=== PATIENT | male | born 2000 | race Asian ===

== ENCOUNTER 2023-09-02 21:23 | Emergency (ER) | payer OTHER, SELFPAY ==
[2023-09-02 21:24] VITALS: RESP 16; O2SAT 99
[2023-09-02 21:28] VITALS: BP 150/80; PULSE 89; RESP 18; TEMP 36.7; O2SAT 99; BMI 24.4
--- NOTE | 2023-09-02 21:37 | ED_ITS ---
HPI - General Adult General Chief complaint: Nose Injury/Pain Stated complaint: sport accident -nose Time Seen by Provider: 09/02/23 21:29 History of Present Illness HPI narrative: Patient is a 22-year-old gentleman [facility] who was playing basketball tonight and was struck in the nose by an opponent head while the patient was playing excellent defense. He did not have any epistaxis but has some swelling over the bridge of the nose. There is slight deformity but patient is able to breathe through both nostrils. Patient did not lose consciousness. He has no neck pain no fevers no chills no night sweats no change in his vision or hearing and no other neurologic symptoms. The injury occurred immediately prior to coming [place] the [place] pain is only mild. Related Data Home Medications Medication Instructions Recorded Confirmed No Known Home Medications 09/02/23 09/02/23 Allergies Allergy/AdvReac Type Severity Reaction Status Date / Time No Known Drug Allergies Allergy Verified 09/02/23 21:30 Review of Systems Status of ROS: Reports: 10 or more systems reviewed and unremarkable except as noted in History and below [facility] Medical History No significant past medical history Surgical History No significant past surgical history Social History Smoking Status: Never smoker Second hand tobacco smoke exposure: No How often do you have a drink containing alcohol: never How often do you have six or more drinks on one occasion: Never AUDIT-C Alcohol total score: 0 Non-prescribed substance use: denies use Exam Narrative: Exam Narrative: EXAM GENERAL: Patient appears comfortable and well. EYES: No scleral icterus. ENT: Tympanic membranes and oropharynx normal. Nasal exam shows mild swelling over the bridge of the nose with slight deviation for the midline. No epistaxis no other injuries noted no tenderness over the maxillary or mandibular regions. THYROID: no thyroid nodules or thyromegaly. LYMPH: No supraclavicular or cervical lymphadenopathy. SKIN: Visible skin seen during exam normal or with benign process only. EXT: No dependent lower extremity pedal edema. HEART: Regular rate and rhythm with no murmurs, rubs, or gallops. LUNGS: Clear to auscultation bilaterally with no crackles or wheezes. ABD: Soft, non tender, non distended. PSYCH: Good eye contact, speech is not pressured. Const: Vital Signs, click to edit/add: Vital Signs - 24 hr 09/02/23 21:24 09/02/23 21:28 Temperature 98.0 F Pulse Rate [Right Pulse Oximeter] 89 Respiratory Rate 18 Respiratory Rate [ Face] 16 Blood Pressure [Ri ght Upper Arm] 150/80 H Pulse Oximetry 99 Oxygen Delivery Me thod Room Air Course Course ED Course: Patient seen and examined. 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 He has no other injuries and no neurologic symptoms. I did carefully examine his nose and see a slight deviation. I do not think he would benefit from further imaging. I did recommend Tylenol Motrin ice and follow up this coming week potentially with the ear nose and throat referral. All q Differential Diagnosis Differential Diagnosis: Nasal fracture orbit fracture maxillary fracture concussion Discharge Plan Discharge Clinical Impression: Contusion, nose Patient Disposition: Home, Self-Care Condition: Stable Instructions: Contusion in Adults (ED) Additional Instructions: ice Tylenol Motrin follow-up next week to discuss further imaging. Activity Level: No Restrictions Discharge Diet: Regular Prescriptions: No Action No Known Home Medications Stand Alone Forms: [employer]ondo Info Instructions
[2023-09-02 22:15] VITALS: BP 135/74; PULSE 80; RESP 18; TEMP 36.7; O2SAT 99
[2023-09-02 22:30] VITALS: BP 135/74; PULSE 80; RESP 18; TEMP 36.7
== END 2023-09-02 22:30 | disposition home or self-care (01) ==
LOC: ED 21:52
PROVIDERS: Emergency Provider Internal Medicine
DX: S00.33XA Contusion of nose, initial encounter (principal); W21.05XA Struck by basketball, initial encounter; Y93.67 Activity, basketball
CPT/HCPCS: 99282; 99283

== ENCOUNTER 2023-09-09 09:50 | Day surgery (SDC) | payer OTHER, SELFPAY ==
[2023-09-09] VITALS (12 sets, daily range): BP systolic 93–127; BP diastolic 40–98; PULSE 67–84; RESP 16; TEMP 36.6–37.6; O2SAT 96–99; BMI 22.7
[2023-09-09] MEDS: LACTATED RINGERS 1000 ML 1,000 ML 100 ML IV (10:35)
[2023-09-09] MEDS: SODIUM CHLORIDE 0.9 % (FLUSH) 10 ML SYRINGE IVF (10:35)
[2023-09-09] MEDS: OXYMETAZOLINE 0.05% NASAL SPRAY 2 SPRAY NOSTRIL-B (11:03)
--- NOTE | 2023-09-09 11:32 | W.ANESCHARGE ---
Anesthesia Charges Start Date/Time Anesthesia Start Date: 09/09/23 Anesthesia Start Time: 11:34 Stop Date/Time Anesthesia Stop Date: 09/09/23 Anesthesia Stop Time: 12:04
[2023-09-09] MEDS: OXYMETAZOLINE (AFRIN) SOAK 1 EACH TOPICAL (11:45)
--- NOTE | 2023-09-09 11:53 | W.PM.ENTPROC ---
Procedure Note Date of procedure: 09/09/23 Procedure: Preoperative diagnosis depressed right nasal fracture Postoperative diagnosis same Procedure closed reduction nasal fracture Under general endotracheal anesthesia patient was prepped and draped usual fashion the nose decongested with Afrin pledgets. The fracture line was palpated and marked externally with the fracture elevator. This too was inserted into the nose and the fracture was reduced. It appeared to be reasonably stable. There was moderate bleeding so I placed dissolvable packing on the right side only. External dressing consisting of benzoin and Steri tape was applied. The patient procedure well was taken recovery in satisfactory condition blood loss less than 20 mL. Surgeon: Cedrick Diego MD
--- NOTE | 2023-09-09 12:36 | SUR.PHASEI ---
patient met discharge criteria per anesthesia
--- NOTE | 2023-09-09 13:00 | W.ANESCHARGE ---
Anesthesia Charges Start Date/Time Anesthesia Start Date: 09/09/23 Anesthesia Start Time: 11:34 Stop Date/Time Anesthesia Stop Date: 09/09/23 Anesthesia Stop Time: 12:04
== END 2023-09-09 13:34 | disposition home or self-care (01) ==
PROVIDERS: PCP Internal Medicine; Visit Provider Otolaryngology
PROC: 0NSBXZZ Reposition Nasal Bone, External Approach (ICD-10-PCS; CPT 21320; principal; 2023-09-09 11:15)
DX: S02.2XXA Fracture of nasal bones, initial encounter for closed fracture (principal)
CPT/HCPCS: 21320; 00160; J0330; J1100; J2405; J2704; J3010; J7120